=== PATIENT | female | born 1980 | race Caucasian/White ===

== ENCOUNTER 2020-09-07 23:12 | Emergency (ER) | payer OTHER ==
[~2020-09-07] VITALS: Ht 182.9 cm; Wt 111.8 kg
[~2020-09-07 23:12] MED LIST: ALPR0.5T93 PO; CITA40TA5 PO; TRAM50TA2 PO
--- NOTE | 2020-09-07 23:58 | NUR ---
ERP AT BEDSIDE
--- NOTE | 2020-09-08 | NUR ---
INITIAL PT CONTACT. PT PRESENTS TO ED C/O HEADACHE BEHIND L EYE W N/V SINCE 1999. DENIES HX OF MIGRAINES. PT C/O OF PHOTOPHOBIA ASSOCIATED WITH LEI, NO VISUIAL CHANGES NOTED. PT SUPINE ON GURNEY. SONG ZAZUETA. PT PROVIDED BLANKET AND PLACED ON CONTINUOUS MONITORING. CALL LIGHT AND BELONGINGS WITHIN REACH. AWAITING ERP.
[2020-09-08] MEDS ORDERED: METOCLOPRAMIDE 5 MG/ML, 2ML ONE (00:16)
[2020-09-08] MEDS ORDERED: DIPHENHYDRAMINE 50 MG/ML, 1ML ONE (00:16)
[2020-09-08 00:22] LABS: BASOPHILS % (AUTO) 1 % (0-1); EOSINOPHILS % (AUTO) 2 % (1-7); LYMPHOCYTES % (AUTO) 27 % (22-44); MEAN CORPUSCULAR HEMOGLOBIN 28.6 pg (27.0-34.8); MEAN CORPUSCULAR HGB CONC 33.4 g/dL (32.4-35.8); MEAN PLATELET VOLUME 7.9 fL (7.4-10.4); MONOCYTES % (AUTO) 7 % (2-9); NEUTROPHILS % (AUTO) 64 % (42-75); PLATELET COUNT 216 x10^3/uL (130-400); RED BLOOD COUNT 5.03 x10^6/uL (3.82-5.3); RED CELL DISTRIBUTION WIDTH 13.3 % (9.6-15.2)
[2020-09-08 00:23] LABS: MD NO
[2020-09-08] MEDS ORDERED: DIPHENHYDRAMINE 50 MG/ML, 1ML IV ONE (00:30)
[2020-09-08] MEDS ORDERED: SODIUM CHLORIDE 0.9% 1,000ML IVBOLUS ONE (00:30)
[2020-09-08] MEDS ORDERED: METOCLOPRAMIDE 5 MG/ML, 2ML IVPush ONE (00:30)
[2020-09-08 00:31] LABS: ALBUMIN 3.7 g/dL (3.4-5.0); ANION GAP 2 mmol/L (5-15); CALCIUM 8.7 mg/dL (8.5-10.1); CHLORIDE 107 mmol/L (98-107)
[2020-09-08] MEDS ORDERED: KETOROLAC 30 MG/1 ML ONE (01:59)
[2020-09-08] MEDS ORDERED: DEXAMETHASONE 4 MG/ML, 5ML ONE (01:59)
[2020-09-08] MEDS ORDERED: DEXAMETHASONE 4 MG/ML, 1ML IVPush ONE (02:00)
[2020-09-08] MEDS ORDERED: KETOROLAC 30 MG/1 ML IVPush ONE (02:00)
--- NOTE | 2020-09-08 02:01 | NUR ---
PT REPORTS MILD RELIEF OF PAIN FOLLOWING [employer] CONVERTER HELPER. PT REQUESTING ADDITIONAL PAIN MEDICATION. MEDICATED PER EMAR. NO ADDITIONAL NEEDS AT THIS TIME. CALL LIGHT AND PERSONAL BELONGINGS WITHIN REACH. AT BEDSIDE.
[2020-09-08 02:03] VITALS: BP 116/72
== END 2020-09-08 02:30 | disposition home or self-care (01) ==
LOC: ED 09-08 00:12
DX: G44.019 Episodic cluster headache, not intractable (principal); R11.2 Nausea with vomiting, unspecified; K21.9 Gastro-esophageal reflux disease without esophagitis; Z87.891 Personal history of nicotine dependence
CPT/HCPCS: 36415; 70450; 80048; 82040; 84703; 85025; 96361; 96374; 96375; 99284; J1100; J1200; J1885; J2765; J7030